=== PATIENT | female | born 1955 | race Caucasian/White ===

== ENCOUNTER 2024-12-04 08:56 | Emergency (ER) | payer OTHER, SELFPAY ==
--- OUTSIDE RECORDS SUMMARY | 2024-12-03 11:00 | XMS_ITS | Encounter Summary ---
Author Organization [facility] tem Address [id number] [address] [place] [address] Care Team Providers Care Automatic Mounter Name Role Phone Gareth Soria Primary Care Provider [phone]- [phone] Reason for Visit * Reason Comments Ear Fullness Encounter Details Date Type Department Care Team (Late st Contact Info) Description 12/03/2024 11:00 AM EDT Office Visit [facility] Internal Medicine - Family Medicine [address] [place] [phone] Krystal Casas, WORKERS COMPENSATION CONSULTANT-TIRE DEBEADER [address] [place] [phone] Excessive cerumen in ear canal, bilateral (Primary Dx) Social History Tobacco Use Types Packs/Day Years Used Date Smoking Tobacco: Former Cigarettes 1 1994 Smokeless Tobacco: Never Alcohol Use Standard Drinks/Week Comments Yes 0 (1 standard drink = 0.6 oz pur e alcohol) rarely C Utilities Answer Date Recorded In the past 12 months has [employer], gas, oil, or water company threatened to shut off services in your home? No 05/27/2023 Social Connection and Isolat ion Panel [NHANES] Answer Date Recorded In a typical week, how many times do you talk on the phone with family, friends, or neighbors? More than three times a week 06/14/2022 How often do you get togethe r with friends or relatives? Twice a week 06/14/2022 How often do you attend chur ch or buddhism services? Never 06/14/2022 Do you belong to any clubs o r organizations such as pentecostal groups, unions, fraternal or athletic groups, or school groups? Yes 06/14/2022 How often do you attend meet ings of the clubs or organizations you belong to? More than 4 times per year 06/14/2022 Are you , , di vorced, , never , or living with a partner? Never 06/14/2022 AUDIT-C Answer Date Recorded Q1: How often do you have a drink containing alc ohol? Monthly or less 04/03/2024 Q2: How many drinks containi ng alcohol do you have on a typical day when you are drinking? 3 or 4 04/03/2024 Q3: How often do you have si x or more drinks on one occasion? Never 04/03/2024 Overall Financial Resource Strain (CARDIA) Answe r Date Recorded How hard is it for you to pa y for the very basics like food, housing, medical care, and heating? Not hard at all 12/02/2024 PHQ-2 Answer Date Recorded Total Score 16 10/05/2024 [facility] [place] of Occupat ional Health - Occupational Stress Questionnaire Answer Date Recorded Do you feel stress - tense, restless, nervous, or anxious, or unable to sleep at night because your mind is troubled all the time - these days? Not at all 06/14/2022 Exercise Vital Sign Answer Date Recorde d On average, how many days pe r week do you engage in moderate to strenuous exercise (like a brisk walk)? 2 days 06/14/2022 On average, how many minutes do you engage in exercise at this level? 20 min 06/14/2022 PRAPARE - Transportation Answer Date Re corded In the past 12 months, has l ack of transportation kept you from medical appointments or from getting medications? No 11/15 In the past 12 months, has l ack of transportation kept you from meetings, work, or from getting things needed for daily living? No 12/02/2024 Housing Instability Answer Date Recorde d Are you worried or concerned that in the next two months you may not have stable housing that you own, rent or stay in as a part of a household? No 12/02/2024 Childcare Answer Date Recorded Do problems getting child ca re make it difficult for you to work or study? No 06/14/2022 Employment Answer Date Recorded Do you need help finding a [facility] career center and/or a training program? No 06/14/2022 Hunger Screening Answer Date Recorded Within the past 12 months we worried whether our food would run out before we got money to buy more. Never True 12/02/2024 Within the past 12 months th e food we bought just didn't last and we didn't have money to get more. Never True 12/02/2024 Purpose - Life Answer Date Recorded I have a purpose and direction in my life. Somew hat Agree 06/14/2022 Education Answer Date Recorded What is the highest level of school you have completed or the highest degree you have received? Associate degree: occupational, technical, or vocational program 06/14/2022 Comments No Sex and Gender Information Value Date Recorded Sex Assigned at Female 12/04/2020 1:59 PM EDT Legal Sex Female 11:28 AM EDT Gender Identity Female 12/04/2020 1:59 PM EDT Sexual Orientation Straight 12/04/2020 1: 59 PM EDT documented as of this encounter Last Filed Vital Signs Vital Sign Reading Time Taken Comments Blood Pressure 108/80 12/03/2024 11:03 AM EDT Pulse 85 12/03/2024 11:03 AM EDT Temperature 36.4 C (97.6 F) 12/03/2024 11:03 AM EDT Respiratory Rate 16 12/03/2024 11:03 AM EDT Oxygen Saturation 96% 12/03/2024 11:03 AM EDT Inhaled Oxygen Concentration - - Weight 53.3 kg (117 lb 6.4 oz) 12/03/2024 11:03 AM EDT Height 154.9 cm (5' 1 ) 12/03/2024 11:03 AM EDT Body Mass Index 22.18 12/03/2024 11:03 AM EDT documented in this encounter Patient Instructions * Attachments The following attachments cannot be sent through Care Everywhere. * Ear wax impaction (Macedonian) documented in this encounter Progress Notes * Krystal Casas APRN-TIRE DEBEADER - 12/03/2024 11:00 AM EDT Images from the original note were not included. [address] [place] [address] SUBJECTIVE: Patient ID: Ruth Yañez is a 69 y.o. female. Chief Complaint Patient presents with Ear Fullness Patient presents today for ear fullness. States she went to the baling machine operator who informed her she has cerumen build up in her ears. She has been using Debrox with limited results. Ear Fullness There is pain in both ears. This is a new problem. The current episode started more than 1 month ago. The problem occurs constantly. The problem has been waxing and waning. The patient is experiencing no pain. She has tried nothing for the symptoms. The following portions of the patient's history were reviewed and updated as appropriate: allergies, current medications, past family history, past medical history, past social history, past surgicalhistory and problem list. Past Surgical History: Procedure Laterality Date CATARACT EXTRACTION 2016 COLONOSCOPY N/A 08/03/2020 Performed by Geoffrey Reno DO at [facility] JOINT REPLACEMENT 2016 left knee LAPAROSCOPIC CHOLECYSTECTOMY REPLACEMENT TOTAL JOINT HIP [id number] Left 12/04/2022 Performed by Bennie Saucedo MD at [facility] TOTAL KNEE ARTHROPLASTY Left 2014 Past Medical History: Diagnosis Date Cataract removed Depression Diabetes mellitus type 2, controlled ([facility]) HL (hearing loss) aids Hyperlipidemia Hypertension Kidney stones Obesity 1999 Osteoarthritis Prolonged emergence from general anesthesia Seizure disorder ([facility]) last seizure , pt states she had abscence seizures Syncope In younger years Varicella 2 Visual impairment glasses Immunization History Administered Date(s) Administered COVID-19, mRNA, LNP-S, PF, 100mcg/0.5mL Dose 08/24/2020, 09/21/2020 COVID-19, mRNA, LNP-S, PF, 30mcg/0.3mL Dose 06/05/2021 Covid-19, Mrna, Lnp-s, Bivalent, Pf, 30mcg/0.3 ml 04/02/2022 Covid-19, Mrna, Lnp-s, Pf, 30 Mcg/0.3 Ml Dose, Jerman-sucrose 11/10/2021 Covid-19, Mrna, Lnp-s, Pf,jerman-sucrose,30 Mcg/0.3ml Seasonal 04/03/2024 Covid-19,mrna, Lnp-s, Pf, 50mcg/0.5ml 12+ Seasonal 05/15/2023 DTaP 08/25/2009 Influenza (IM) Preservative Free 04/19/2015 Influenza Whole 05/29/2010 Influenza, High-dose, Quadrivalent 04/02/2022 Influenza, Injectable, Mdck, Preservative Free, Quad 04/15/2018 Influenza, Injectable, quadrivalent (PF) 04/20/2016, 03/07/2019, 04/01/2020, 06/02/2021 Influenza, Trivalent, Adjuvanted 04/03/2024 Influenza, Unspecified 04/19/2014, 04/19/2016, 05/14/2017 Pneumococcal Conjugate 20-valent 02/07/2022 Pneumococcal Polysaccharide 08/24/2016 Tdap 2015, 05/26/2021 Zoster Vaccine Recombinant 02/07/2022, 04/09/2022 REVIEW OF SYSTEMS: Review of Systems Constitutional: Negative for chills and fever. HENT: Ear fullness Eyes: Negative for visual disturbance. Respiratory: Negative for chest tightness and shortness of breath. Cardiovascular: Negative for chest pain and palpitations. Gastrointestinal: Negative. Endocrine: Negative. Genitourinary: Negative for menstrual problem and pelvic pain. Musculoskeletal: Negative. Skin: Negative. Allergic/Immunologic: Negative. Neurological: Negative for syncope and facial asymmetry. Hematological: Does not bruise/bleed easily. Psychiatric/Behavioral: Negative. PHYSICAL EXAMINATION: Vitals: 12/03/24 1103 BP: 108/80 BP Site: Left Arm BP Postition: Sitting Pulse: 85 Resp: 16 Temp: 36.4 ??C (97.6 ??F) TempSrc: Tympanic SpO2: 96% Weight: 53.3 kg (117 lb 6.4 oz) Height: 154.9 cm (5' 1 ) Physical Exam Vitals and nursing note reviewed. Constitutional: General: She is not in acute distress. Appearance: She is well-developed. She is not diaphoretic. HENT: Head: Normocephalic and atraumatic. Right Ear: Tympanic membrane and external ear normal. There is impacted cerumen. Left Ear: Tympanic membrane and external ear normal. There is impacted cerumen. Nose: Nose normal. Mouth/Throat: Mouth: Mucous membranes are moist. Pharynx: No oropharyngeal exudate. Eyes: General: Right eye: No discharge. Left eye: No discharge. Conjunctiva/sclera: Conjunctivae normal. Pupils: Pupils are equal, round, and reactive to light. Neck: Thyroid: No thyromegaly. Vascular: No JVD. Cardiovascular: Rate and Rhythm: Normal rate and regular rhythm. Heart sounds: Normal heart sounds. No murmur heard. No friction rub. No gallop. Pulmonary: Effort: Pulmonary effort is normal. Breath sounds: Normal breath sounds. Abdominal: General: Bowel sounds are normal. There is no distension. Palpations: Abdomen is soft. There is no mass. Tenderness: There is no abdominal tenderness. Musculoskeletal: General: Normal range of motion. Cervical back: Normal range of motion and neck supple. Lymphadenopathy: Cervical: No cervical adenopathy. Skin: General: Skin is warm and dry. Capillary Refill: Capillary refill takes less than 2 seconds. Neurological: Mental Status: She is alert and oriented to person, place, and time. Deep Tendon Reflexes: Reflexes are normal and symmetric. Psychiatric: Mood and Affect: Mood normal. Behavior: Behavior normal. Thought Content: Thought content normal. Judgment: Judgment normal. ASSESSMENT/PLAN: Ruth was seen today for ear fullness. Diagnoses and all orders for this visit: Excessive cerumen in ear canal, bilateral Bilateral ears irrigated with warm tepid water. Manual removal of dark yellow cerumen from both ears. Patient tolerated procedure well. May continue to use Debrox PRN ALL QUESTIONS ANSWERED Total time spent was 25 minutes: Preparing to see the patient (e.g., review of tests) Obtaining and/or reviewing separately obtained history Performing a medically appropriate examination and/or evaluation Counseling and educating the patient/family/caregiver Follow-up: Next scheduled 01/07/25 LUPE Ocasio 12/03/24 1136 documented in this encounter Plan of Treatment Upcoming Encounters Date Type Department Care Team (Late st Contact Info) Description 01/07/2025 10:00 AM EDT Office Visit [facility] Internal Medicine - Family Medicine [address] [place] [address] Gareth Soria DO [address] [place] [address] documented as of this encounter Goals Goal Patient Goal Type Associated Problems Recent Progress Patient-Stated? Author IMPROVE MOBILITY General Yes Mary Siu, RN Note: Evaluation of progress towards goal: Maximize work with PT at discharge to strengthen L HIP documented as of this encounter Visit Diagnoses Diagnosis Excessive cerumen in ear canal, bilateral- Primary documented in this encounter Additional Health Concerns Assessment Noted Time PHQ-9 Depression Total Score: 16 025 2:46 PM EDT A Body Mass Index follow-up plan has been documented for the patient 06/14/2022 6:18 PM EST documented as of this encounter Care Teams Automatic Mounter Relationship Specialty Start Date End Date Gareth Soria DO [address] [facility] [place] [address] PCP - General 09/26/23 documented as of this encounter
[2024-12-04] VITALS (16 sets, daily range): BP systolic 139–169; BP diastolic 82–97; PULSE 73–86; TEMP 36.6–36.7; O2SAT 95; BMI 22.3
--- OUTSIDE RECORDS SUMMARY | 2024-12-04 09:06 | XMS_ITS | Encounter Summary ---
Author Organization [employer] tem Address [facility] [id number] [address] [place] [address] Care Team Providers Care Presales Engineer Name Role Phone Gareth Soria Primary Care Provider [phone] Reason for Visit * Reason Comments Med Refill Encounter Details Date Type Department Care Team (Late st Contact Info) Description 07/10/2022 Refill [facility] Internal Medicine - Family Medicine [address] [place] [phone] Krystal Casas, NURSE MONITORING-CHANNEL ROUGHER [address] [facility] [place] [address] Type 2 diabetes mellitus with hyperglycemia, without long-term current use of insulin ([facility]) Social History Tobacco Use Types Packs/Day Years Used Date Smoking Tobacco: Former Cigarettes 1 15 Smokeless Tobacco: Never Alcohol Use Standard Drinks/Week Comments Yes 0 (1 standard drink = 0.6 oz pur e alcohol) rarely Social Connection and Isolat ion Panel [NHANES] Answer Date Recorded In a typical week, how many times do you talk on the phone with family, friends, or neighbors? More than three times a week 06/14/2022 How often do you get togethe r with friends or relatives? Twice a week 06/14/2022 How often do you attend chur or latter day services? Never 06/14/2022 Do you belong to any clubs o r organizations such as druze groups, unions, fraternal or athletic groups, or [...] you have a drink containing alc ohol? 2-4 times a month 06/14/2022 Q2: How many drinks containi ng alcohol do you have on a typical day when you are drinking? 3 or 4 06/14/2022 Q3: How often do you have si x or more drinks on one occasion? Never 06/14/2022 Overall Financial Resource Strain (CARDIA) Answe r Date Recorded How hard is it for you to pa y for the very basics like food, housing, medical care, and heating? Not hard at all 06/14/2022 PHQ-2 Answer Date Recorded Total Score 0 06/14/2022 [facility] of Occupat ional Health - Occupational Stress [...] medical appointments or from getting medications? No 05/18 In the past 12 months, has l ack of transportation kept you from meetings, work, or from getting things needed for daily living? No 06/14/2022 Childcare Answer Date Recorded Do problems getting child ca re make it difficult for you to work or study? No 06/14/2022 Employment Answer Date Recorded Do you need help finding a [facility] and/or a training program? No 06/14/2022 Purpose - Life Answer Date Recorded I [...] Orientation Straight 12/04/2020 1: 59 PM EDT COVID-19 Exposure Response Date Recorded In the last month, have you been in contact with someone who was confirmed or suspected to have Coronavirus / COVID-19? No / Unsure 06/14/2022 3:21 PM EST documented as of this encounter Plan of Treatment Upcoming Encounters Date Type Department Care Team (Late st Contact Info) Description 01/07/2025 10:00 AM EDT Office Visit [facility] Internal Medicine - Family Medicine [address] [place] [address] Gareth Soria DO [address] [facility] [place] [address] documented as of this encounter Visit Diagnoses Diagnosis Type 2 diabetes mellitus with hyperglycemia, without long-term current use of insulin ([facility]) documented in this encounter Additional Health Concerns Assessment Noted Time PHQ-9 Depression Total Score: 0 06/14/20 22 3:43 PM EST A Body Mass Index follow-up plan has been documented for the patient 06/14/2022 6:18 PM EST documented as of this encounter Care Teams Presales Engineer Relationship Specialty Start Date End Date Gareth Soria DO [address] [facility] [place] [address] PCP - General 09/26/23 documented as of this encounter
--- OUTSIDE RECORDS SUMMARY | 2024-12-04 09:06 | XMS_ITS | Encounter Summary ---
Author Organization [facility] tem Address [id number] [address] [place] [address] Care Team Providers Care Drying Machine Tender Name Role Phone Gareth Soria DO Primary Care Provider [phone] Encounter Details Date Type Department Care Team (Late st Contact Info) Description 04/06/2024 Orders Only [facility] Internal Medicine - Family Medicine [address] [place] [address] Gareth Soria DO [address], [facility] [place] [address] Social History Tobacco Use Types Packs/Day Years Used Date Smoking Tobacco: Former Cigarettes 1 05 17 983 - 1994 Smokeless Tobacco: Never Alcohol Use Standard Drinks/Week Comments Yes 0 (1 standard drink = 0.6 oz pur e alcohol) rarely [facility] Utilities Answer Date Recorded In the past 12 months has [employer] electric, gas, oil, or water company threatened [...] week 06/14/2022 How often do you attend [facility] or muslim services? Never 06/14/2022 Do you belong to any clubs o r organizations such as scientologist groups, unions, fraternal or athletic groups, or [...] care, and heating? Not hard at all 05/24/2023 PHQ-2 Answer Date Recorded Total Score 0 09/05/2023 [facility] of Occupat ional Health - Occupational Stress [...] medical appointments or from getting medications? No 01/2023 In the past 12 months, has l ack of transportation kept you from meetings, work, or from getting things needed for daily living? No 05/24/2023 Housing Instability Answer Date Recorde d Are you worried or concerned that in the next two months you may not have stable housing that you own, rent or stay in as a part of a household? No 05/24/2023 Childcare Answer Date Recorded Do problems getting child ca re make it difficult for you to work or study? No 06/14/2022 Employment Answer Date Recorded Do you need help finding a [facility] and/or a training program? No 06/14/2022 Hunger Screening Answer Date Recorded Within the past 12 months we worried whether our food would run out before we got money to buy more. Never True 11/27/2023 Within the past 12 months th e food we bought just didn't last and we didn't have money to get more. Never True 11/27/2023 Purpose - Life Answer Date Recorded I [...] PM EDT documented as of this encounter Plan of Treatment Upcoming Encounters Date Type Department Care Team (Late st Contact Info) Description 01/07/2025 10:00 AM EDT Office Visit [facility] Internal Medicine - Family Medicine [address] [place] [address] Gareth Soria, [address] [facility] [place] [address] documented as of this encounter Goals Goal Patient Goal Type Associated Problems Recent Progress Patient-Stated? Author IMPROVE MOBILITY General Yes Mary Siu, RN Note: Evaluation of progress towards goal: Maximize work with PT at discharge to strengthen L HIP documented as of this encounter Visit Diagnoses Not on filedocumented in this encounter Additional Health Concerns Assessment Noted Time PHQ-9 Depression Total Score: 0 09/05/19 24 2:24 PM EDT A Body Mass Index follow-up plan has been documented for the patient 06/14/2022 6:18 PM EST documented as of this encounter Care Teams Drying Machine Tender Relationship Specialty Start Date End Date Gareth Soria DO [address] [place], [facility] [place] [address] PCP - General 09/26/23 documented as of this encounter
--- OUTSIDE RECORDS SUMMARY | 2024-12-04 09:06 | XMS_ITS | Encounter Summary ---
Author Organization [facility] tem Address [id number] [address] [place] [address] Care Team Providers Care Casing Splitter Name Role Phone Gareth Soria Primary Care Provider Encounter Details Date Type Department Care Team (Late st Contact Info) Description 02/14/2022 Orders Only [facility] [address] [place] [phone] Rose Abrams CMA Social History Tobacco Use Types Packs/Day Years Used Date Smoking Tobacco: Former Cigarettes 1 15 Smokeless Tobacco: Never Alcohol Use Standard Drinks/Week Comments Yes 0 (1 standard drink = 0.6 oz pur e alcohol) rarely Childcare Answer Date Recorded Childcare Unknown 11/24/2018 Employment Answer Date Recorded Employment Unknown 11/24/2018 Purpose - Life Answer Date Recorded Purpose and direction in life Unknown Comments No Sex and Gender Information Value [...] have Coronavirus / COVID-19? No / Unsure 01/24/2022 1:32 PM EDT documented as of this encounter Plan of Treatment Upcoming Encounters Date Type Department Care Team (Late st Contact Info) Description 01/07/2025 10:00 AM EDT Office Visit [facility] - Family Medicine [address] [address] Gareth Soria DO [address] [facility] [facility] [address] documented as of this encounter Visit Diagnoses Not on filedocumented in this encounter Care Teams Casing Splitter Relationship Specialty Start Date End Date Gareth Soria DO [address] [facility] [facility] [address] PCP - General 09/26/23 documented as of this encounter
--- OUTSIDE RECORDS SUMMARY | 2024-12-04 09:06 | XMS_ITS | Encounter Summary ---
Author Organization [facility] tem Address [id number] [address] [place] [address] Care Team Providers Care Biological Sciences Instructor Name Role Phone Gareth Soria Primary Care Provider [phone] Encounter Details Date Type Department Care Team (Late st Contact Info) Description 04/16/2024 Orders Only [facility] Internal Medicine - Family Medicine [address] [place] [address] Ref Prov, [place] [address] Social History Tobacco Use Types Packs/Day Years Used Date Smoking Tobacco: Former Cigarettes 1 1994 Smokeless Tobacco: Never Alcohol Use Standard Drinks/Week Comments Yes 0 (1 standard drink = 0.6 oz pur e alcohol) rarely C Utilities Answer Date Recorded In the past 12 months has [employer], gas, oil, or water [employer] threatened to shut off services in your [...] How often do you attend chur or christianity services? Never 06/14/2022 Do you belong to any clubs o r organizations such as jewish groups, unions, fraternal or athletic groups, or [...] Answer Date Recorded Total Score 0 09/05/2023 [facility] - Occupational [...] Recorded Do you need help finding a l ocal career center and/or a training program? No [...] Internal Medicine - Family Medicine [address] [place] [address] Gaerth Soria, DO [address], [place] [address] documented as of this encounter Goals Goal Patient Goal Type Associated Problems Recent Progress Patient-Stated? Author IMPROVE MOBILITY General Yes Mary Siu, RN Note: Evaluation of progress towards goal: Maximize work with PT at discharge to strengthen L HIP documented as of this encounter Procedures Procedure Name Priority Date/Time Associated Diagnosis Comments DIABETES EYE EXAM Routine 12/18/2023 2:05 PM EDT documented in this encounter Results * HM DIABETES EYE EXAM (12/18/2023 2:05 PM EDT) us Not In System Ref Prov HEALTH MAINTENANCE Final Result MANUALLY TRANSCRIBED RESULTS documented in this encounter Visit Diagnoses Not on filedocumented in this encounter Additional Health Concerns Assessment Noted Time PHQ-9 Depression Total Score: 0 09/05/19 24 2:24 PM EDT A Body Mass Index follow-up plan has been documented for the patient 06/14/2022 6:18 PM EST documented as of this encounter Care Teams Biological Sciences Instructor Relationship Specialty Start Date End Date Gareth Soria DO [address] [facility], [place] [address] PCP - General 09/26/23 documented as of this encounter
--- OUTSIDE RECORDS SUMMARY | 2024-12-04 09:06 | XMS_ITS | Clinical Summary ---
Author Organization Mineralist tem Address [id number] [address] [place] [address] Care Team Providers Care Ceramic Painter Name Role Phone Gareth Soria Primary Care Provider Allergies No known active allergies Medications calcium carbonate (OS-CANDIDA) 500 mg calcium (1,250 mg) tablet Active aspirin 81 mg Take 1 tablet (81 mg total) by mouth in the morning. 100 tablet 3 Active latanoprost (XALATAN) 0.005 % ophthalmic solution 4 Active losartan (COZAAR) 50 mg tabletIndications :Essential (primary) hypertension TAKE 1 TABLET BY MOUTH DAILY 90 tablet 1 5 Active sertraline (ZOLOFT) 100 mg tabletIndications :Dysthymic disorder TAKE 1 TABLET BY MOUTH DAILY 30 tablet 5 5 Active atorvastatin (LIPITOR) 40 mg tabletIndications :Hyperlipidemia, unspecified TAKE 1 TABLET BY MOUTH DAILY 30 tablet 5 5 Active potassium chloride (KLOR-CON M 10) 10 MEQ CR tablet TAKE 1 TABLET BY MOUTH EVERY MORNING 30 tablet 5 5 Active mirabegron (MYRBETRIQ) 25 mg tablet extended release 24 hr Take 1 tablet (25 mg total) by mouth in the morning. 90 tablet 1 5 Active dulaglutide (TRULICITY) 3 mg/0.5 mL pen injectorIndicatio ns:Controlled type 2 diabetes mellitus without complication, without long-term current use of insulin ([facility]) Inject 3 mg under the skin once a week. 2 mL 3 5 Active magnesium oxide (MAGOX) 400 mg tablet Take 1 tablet (400 mg total) by mouth in the morning. 100 tablet 3 5 Active metFORMIN XR (GLUCOPHAGE XR) 750 mg 24 hr tabletIndications :Type 2 diabetes mellitus with hyperglycemia, without long-term current use of insulin ([facility]) TAKE 1 TABLET BY MOUTH DAILY WITH BREAKFAST 30 tablet 5 5 Active alendronate (FOSAMAX) 70 mg tabletIndications :Age-related osteoporosis without current pathological fracture TAKE 1 TABLET BY MOUTH ONCE WEEKLY ON AN EMPTY STOMACH BEFORE BREAKFAST. REMAIN UPRIGHT FOR 30 MINUTES AND TAKE WITH 8 OUNCES OF WATER 12 tablet 3 5 Active carBAMazepine (TEGretol) 200 mg tabletIndications :Epilepsy, unspecified, not intractable, without status epilepticus ([facility]) TAKE 1 TABLET BY MOUTH 4 TIMES A DAY 120 tablet 5 5 Active Active Problems Problem Noted Date Diagnosed Date Urge incontinence 10/05/2024 Moderately severe recurrent major depression Constipation 04/03/2024 History of total left hip arthroplasty Hypomagnesemia 12/05/2022 Thrombocytopenia 12/05/2022 Primary osteoarthritis of left hip 10/25/2022 Overview (10/25/2022): Added automatically from request for surgery [id number] Elevated liver enzymes 07/17/2022 Heart murmur 07/17/2022 Adenomatous polyp of descending colon 08/03/2020 Diverticulosis large intesti ne w/o perforation or abscess w/o bleeding 08/03/2020 Diabetes mellitus type 2, controlled Hyperlipidemia, unspecified Hypertension Seizure disorder Resolved Problems Problem Noted Date Diagnosed Date Resolved Date Overweight 04/03/2024 10/05/2024 Class 1 obesity due to exces s calories with serious comorbidity and body mass index (BMI) of 30.0 to 30.9 in adult 07/17/2022 12/04/2022 Personal history of colonic polyps 07/13/2020 12/04/2022 Overview (03/17/2024): Replacing Diagnosis that were inactivated after 03/17 regulatory import Encounters Date Type Department Care Team Description 12/03/2024 11:00 AM EDT Office Visit [facility] [address] [place] [address] Krystal Casas, NETWORKS COMPUTER CONSULTANT-HAY CHOPPER Excessive cerumen in ear canal, bilateral (Primary Dx) 12/02/2024 Travel 11/17/2024 Orders Only [facility], A Department of [address] [address] External, Scanning Provider 11/13/2024 1:30 PM EDT Office Ultrasound [facility], Department of [address] [address] Steatohepatitis (Primary Dx) 11/10/2024 Travel 11/02/2024 Refill [facility] [address] [facility] [place] [address] Gareth Soria, DO Epilepsy, unspecified, not intractable, without status epilepticus ([facility]) 10/28/2024 [facility] [address] [place] [address] Gareth Soria, DO Steatohepatitis (Primary Dx); Elevated liver enzymes 10/26/2024 Orders Only [facility] [address] [place] [address] Gareth Soria, DO Elevated liver enzymes (Primary Dx); Steatohepatitis 10/26/2024 Telephone [facility] [address] [place] [address] Andree Heart CMA 10/26/2024 Telephone [facility] [address] [place] [address] Tesha Boyce, CASING BUILDER 10/22/2024 8:38 AM EDT - 10/22/2024 11:59 PM EDT Hospital Encounter [facility] - Ultrasound [address] [place] [place] [address] Gareth Soria, DO Elevated liver enzymes Discharge Disposition: Home 10/21/2024 Travel 10/15/2024 Refill [facility] [address] [place] [address] Gareth Soria, DO Type 2 diabetes mellitus with hyperglycemia, without long-term current use of insulin ([facility]); Age-related osteoporosis without current pathological fracture 10/12/2024 Refill [facility] [address] [place] [address] Tesha Boyce CASING BUILDER 10/08/2024 [facility] [address] [place] [address] Ref Prov, Not In System 10/07/2024 [facility] [address] [place] [address] Gareth Soria, Controlled type 2 diabetes mellitus without complication, without long-term current use of insulin ([facility]) (Primary Dx); Elevated liver enzymes 10/05/2024 9:48 PM EDT - 10/05/2024 11:59 PM EDT Hospital Encounter [facility] [address] [facility] [address] [place] [address] Controlled type 2 diabetes mellitus without complication, without long-term current use of insulin ([facility]); Seizure disorder ([facility]); Mixed hyperlipidemia; Primary hypertension Discharge Disposition: Home 10/05/2024 3:00 PM EDT [facility] [address] [place] [address] Gareth Soria, Controlled type 2 diabetes mellitus without complication, without long-term current use of insulin ([facility]) (Primary Dx); Primary hypertension; Mixed hyperlipidemia; Urge incontinence; Seizure disorder ([facility]); Moderately severe recurrent major depression ([facility]) 10/05/2024 Travel 10/01/2024 Refill [facility] [address] [place] [address] Gareth Soria, Hyperlipidemia, unspecified from Last 3 Months Immunizations Immunization Administration Dates Next Due Covid-19, Mrna, Lnp-s, Pf,ramona-sucrose,30 Mcg/0.3ml Seasonal 04/03/2024 DTaP 08/25/2009 Influenza (IM) Preservative Free 04/19/2015 Influenza Whole 05/29/2010 Influenza, High-dose, Quadrivalent 04/02/2022 Influenza, Injectable, Mdck, Preservative Free, Quad 04/15/2018 Influenza, Injectable, quadr ivalent (PF) 06/02/2021,04/01/2020,03/07/2019,04/20 Influenza, Trivalent, Adjuvanted 04/03/2024 Influenza, Unspecified 05/14/2017,04/19/2016,08/2013 Pneumococcal Conjugate 20-valent 02/07/2022 Pneumococcal Polysaccharide 08/24/2016 Tdap 05/26/2021,2015 Zoster Vaccine Recombinant 04/09/2022,02/07/2022 Family History Medical History Relation Name Comments Breast cancer Cousin 1 Keke Age 48 Breast cancer Cousin 2 Terri Age 53 Coronary artery disease Father Jose Heart attack Father Jose Heart disease Father Jose of heart attack at age 40 Stroke Maternal Grandfather Breast cancer Maternal Grandmother Samantha Age 49 Depression Maternal Grandmother Samantha Lymphoma Maternal Grandmother Samantha Colon cancer Maternal Uncle 1 Colon cancer Maternal Uncle 2 Rolan Breast cancer Mother Mary Age 49 Depression Mother Mary Tawana's thyroiditis Mother Mary Heart disease Mother Mary Stroke Mother Mary Breast cancer Other MATERNAL GREAT GRANDMOTH Stroke Paternal Grandmother Anesthesia problems Neg Hx Bryson Breast Cancer Neg Hx Bleeding Disorder Neg Hx Clotting disorder Neg Hx Diabetes Neg Hx Ovarian cancer Neg Hx Relation Name Status Comments Brother Alive Cousin 1 Keke Cousin 2 Terri Father Jose Maternal Grandfather Maternal Grandmother Samantha Maternal Uncle 1 Maternal Uncle 2 Rolan Mother Mary Other MATERNAL GREAT GRANDMOTH Paternal Grandfather Paternal Grandmother Social History Tobacco Use Types Packs/Day Years Used Date Smoking Tobacco: Former Cigarettes 1 12 1994 Smokeless Tobacco: Never Tobacco Cessation:Counseling Given: Not Answered Alcohol Use Standard Drinks/Week Comments Yes 0 (1 standard drink = 0.6 oz pur e alcohol) rarely [facility] Utilities Answer Date Recorded In the past 12 months has th e [employer], gas, oil, or water [employer] threatened to shut off services in your [...] week 06/14/2022 How often do you attend [facility] or pentecostal services? Never 06/14/2022 Do you belong to any clubs o r organizations such as restorationist groups, unions, fraternal or athletic groups, or [...] Answer Date Recorded Total Score 16 10/05/2024 [facility] Occupat ional Health - Occupational Stress [...] Recorded Do you need help finding a [facility] career [facility] and/or a training program? No [...] Orientation Straight 12/04/2020 1: 59 PM EDT Last Filed Vital Signs Vital Sign Reading [...] Mass Index 22.18 12/03/2024 11:03 AM EDT Plan of Treatment Upcoming Encounters Date Type Department Care Team (Late st Contact Info) Description 01/07/2025 10:00 AM EDT Office Visit [facility] [address] [place] [address] Gareth Soria, DO [address] [facility] [address] Health Maintenance Due Date Last Done Comments COVID-19 Vaccine ( season) 2024 04/03/2024, 05/15/2023, 04/02/2022, Additional history exists Influenza Vaccine 02/15/2025 04/03/2024, , 04/02/2022, Additional history exists Mammogram 05/04/2025 05/04/2024, 04/17, 12/20/2021, Additional history exists Diabetic Ophthalmology Exam 06/19/2025 01/0 08/2024, 12/18/2023, 12/18/2023, Additional history exists Colonoscopy 08/03/2025 Postponed from 2002 (Not Indicated) Depression Screening 10/05/2025 10/05/2024 Diabetic Foot Exam 10/05/2025 10/05/2024, 1 07/28/2022, 01/30/2022 Fall Risk Screening 10/05/2025 10/05/2024 Adult BMI Screening 12/03/2025 12/03/2024 Tobacco Screening 12/03/2025 12/03/2024 DTaP,Tdap and Td Vaccines (4 - Td or Tdap) 05/26/2031 05/26/2021, 2015, 08/25/2009 Zoster (Shingles) Vaccine Completed 04/09/2022, Goals Goal Patient Goal Type Associated Problems Recent Progress Patient-Stated? Author IMPROVE MOBILITY General Yes Mary Siu, RN Note: Evaluation of progress towards goal: Maximize work with PT at discharge to strengthen L HIP Medical Devices Implanted Type Area Industrial Yard Brake Coupler Device Identifier Shelf Expiration Date Model / Serial / Lot Bearing Hip 38mm 28mm C Vivacit-E Lum Strl Lf - [id number] Implanted:Qt y: 1 on 12/04/2022 by Bennie Saucedo MD at [facility] Bearing Left: Hip [employer] 05/28/2027 [id number] / / [id number] Shell Actb 48mm Hip Lmt 3 Hl Fin Por G7 C Hmsphr Os - [id number] Implanted:Qt y: 1 on 12/04/2022 by Bennie Saucedo MD at [facility] Orthopedic Implant Left: Hip [employer] [id number] 04/04/2032 [id number] / / [id number] Liner Actb 38mm C Cocr 2 Mbl G7 Hip - [id number] Implanted:Qt y: 1 on 12/04/2022 by Bennie Saucedo MD at [facility] Orthopedic Implant Left: Hip [employer] [id number] 03/29/2032 [id number] / / [id number] Stem Fem 132mm 6mm 133d Hi Os Tpr Tprlk Pps Ti Hip Prft Full - [id number] Implanted:Qt y: 1 on 12/04/2022 by Bennie Saucedo MD at [facility] Orthopedic Implant Left: Hip [employer] [id number] 07/17/2031 [id number] / / [id number] Sleeve Hip -6mm Os Tpr G7 Blx D Opt Ti Centering Ty 1 Rpl 650-1891 - [id number] Implanted:Qt y: 1 on 12/04/2022 by Bennie Saucedo MD at [facility] Orthopedic Implant Left: Hip [employer] 03/06/2032 [id number] / / [id number] Head Fem 28mm Blx D Opt Hip Rpl 650-7779 - [id number] Implanted:Qt y: 1 on 12/04/2022 by Bennie Saucedo MD at [facility] Other Implant Left: Hip [employer] 02/16/2032 [id number] / / [id number] Screw Bn 30mm 6.5mm St Actb Rodrigo Trlg Strl Rpl [id number] - [id number] Implanted:Qt y: 1 on 12/04/2022 by Bennie Saucedo MD at [facility] Screw Left: Hip [employer] [id number] 09/13/2032 [id number] / / [id number] Procedures Procedure Name Priority Date/Time Associated Diagnosis Comments FIBROSCAN Routine 11/13/2024 2:55 PM EDT US ABDOMEN LMTD Routine 10/22/2024 9:07 AM EDT Elevated liver enzymes POCT URINALYSIS DIPSTICK ONLY Routine 10/05/2024 3:58 PM EDT Urge incontinence COMPREHENSIVE METABOLIC PANEL Routine 10/05/2024 3:44 PM EDT Primary hypertension LIPID PROFILE Routine 10/05/2024 3:44 PM EDT Mixed hyperlipidemia CARBAMAZEPINE WITH DOSE INFO Routine 10/05/2024 3:44 PM EDT Seizure disorder ([facility]) HEMOGLOBIN A1C Routine 10/05/2024 3:44 PM EDT Controlled type 2 diabetes mellitus without complication, without long-term current use of insulin ([facility]) HM DIABETES EYE EXAM Routine 06/19/2024 2:06 PM EST MAMM SCREENING BILATERAL W CAD Routine 05/04/2024 2:00 PM EST Encounter for screening mammogram for malignant neoplasm of breast from Last 3 Months or Most Recently Relevant to Health Maintenance Results * Ultrasound abdomen limited (10/22/2024 9:07 AM EDT) Anatomical Region Laterality Modality Body, Abdomen Ultrasound 10/25/2024 2:14 PM EDT Narrative 10/25/2024 2:16 PM EDT ABDOMEN LIMITED ULTRASOUND HISTORY: Elevated liver enzymes COMPARISON: 08/10/2021 FINDINGS: Pancreas: Visualized portions of the pancreatic head and body are unremarkable. Coarsened hepatic echotexture with nodular surface contour compatible with cirrhosis. Within these limits, no focal hepatic lesion. No intrahepatic biliary dilatation. Main portal vein is patent with appropriate direction of flow. Recanalized paraumbilical vein. Gallbladder surgically absent. Common duct measures 2 mm, within normal limits for patient's provided age. No visualized ascites. IMPRESSION: 1. Morphologic changes of cirrhosis, no appreciable hepatic mass. No ascites. Social: Reports hypertension with recanalized paraumbilical vein. Finalized by Basilio Dumont MD on 10/25/2024 2:16 PM Procedure Note Basilio Dumont MD - 10/25/2024 ABDOMEN LIMITED ULTRASOUND HISTORY: Elevated liver enzymes COMPARISON: 08/10/2021 FINDINGS: Pancreas: Visualized portions of the pancreatic head and body areunremarkable. Coarsened hepatic echotexture with nodular surface contour compatible withcirrhosis. Within these limits, no focal hepatic lesion. No intrahepatic biliary dilatation. Main portal vein is patent withappropriate direction of flow. Recanalized paraumbilical vein. Gallbladder surgically absent. Common duct measures 2 mm, within normal limits for patient's providedage. No visualized ascites. IMPRESSION: 1. Morphologic changes of cirrhosis, no appreciable hepatic mass. Noascites. Social: Reports hypertension with recanalized paraumbilicalvein. Finalized by Basilio Dumont MD on 10/25/2024 2:16 PM us Gareth Soria DO IMG US ORDERABLES Final Resu lt * POCT urinalysis dipstick only (10/05/2024 3:58 PM EDT) External Poct Urine Color yellow MANUALLY TRANSCRIBED RESULTS External Poct Urine Appearance cloudy MANUALLY TRANSCRIBED RESULTS External Poct Urine Glucose Large MANUALLY TRANSCRIBED RESULTS Comment:500mg External Poct Urine Bilirubin Trace MANUALLY TRANSCRIBED RESULTS External Poct Urine Ketones Trace MANUALLY TRANSCRIBED RESULTS External Poct Urine Specific Newell 1.025 MANUALLY TRANSCRIBED RESULTS External Poct Urine Blood Trace MANUALLY TRANSCRIBED RESULTS External Poct Urine Ph 6.0 MANUALLY TRANSCRIBED RESULTS External Poct Urine Protein 3+ MANUALLY TRANSCRIBED RESULTS Comment:30 External Poct Urine Urobilinogen 1.0 MANUALLY TRANSCRIBED RESULTS External Poct Urine Nitrite Negative MANUALLY TRANSCRIBED RESULTS Comment:1.0 External Poct Urine Leukocyte Esterase Negative MANUALLY TRANSCRIBED RESULTS Clean Catch Midstream Urine 10/05/2024 3:58 PM EDT Gareth Soria DO POINT OF CARE TEST ORDERABLE S Final Result Performing Organization Address City/[facility] Co de Phone Number MANUALLY TRANSCRIBED RESULTS * Carbamazepine with dose info (10/05/2024 3:44 PM EDT) Carbamazepine Lvl 6.6 4.0 - 12.0 ug/mL 10/05/2024 10:10 PM EDT [facility] Dose info UNKNOWN 10/05/2024 9:50 PM EDT [employer] PLASMA 10/05/2024 3:44 PM EDT 10/05/2024 9:49 PM EDT us Gareth Soria DO LAB BLOOD ORDERABLES Final R esult [employer] [address] [place] [address] * (ABNORMAL) Hemoglobin A1c (10/05/2024 3:44 PM EDT) Pathologist [facility] Hemoglobin A1C 12.2(H) 4.4 - 5.6 % 10/06/2024 7:38 AM EDT [facility] Comment: NOTE ADA Guidelines Result HgbA1c Normal : less than 5.7 % Prediabetes : 5.7 % to 6.4 % Diabetes : > 6.4 % Use with caution in patients with abnormal hemoglobin variants as the half-life of red blood cells and in vivo glycation rates are affected. Average glucose 303 mg/dL 7:38 AM EDT [facility] PLASMA 10/05/2024 3:44 PM EDT 10/05/2024 9:49 PM EDT Gareth Soria DO LAB BLOOD ORDERABLES Final R esult JANETH [facility] [address], [address] [place] [address] * (ABNORMAL) Lipid profile (10/05/2024 3:44 PM EDT) [facility] Cholesterol 154 150 - 200 mg/dL 10/05/2024 10:10 PM EDT [facility] Triglycerides 156(H) 27 - 150 mg/dL 10/05/2024 10:10 PM EDT [facility] HDL Cholesterol 74 >39 mg/dL 10:10 PM EDT [facility] Comment: HDL <40 mg/dL - High Risk HDL > or = 40mg/dL- Desirable HDL >60 mg/dL - Negative Risk VLDL 31(H) 0 - 30 mg/dL 10/05/2024 10:10 PM EDT [facility] LDL (calc) 49 <130 mg/dL 10/05/2024 10:10 PM EDT [facility] Comment: LDL <100 mg/dL - Desirable LDL >160 mg/dL - High Risk Cholesterol:HDL Ratio 2.1 1.0 - 5.0 10/05/2024 10:10 PM EDT [facility] PLASMA 10/05/2024 3:44 PM EDT 10/05/2024 9:49 PM EDT us Gareth Soria DO LAB BLOOD ORDERABLES Final R esult [facility] [address], [address] [place] [address] * (ABNORMAL) Comprehensive metabolic panel (10/05/2024 3:44 PM EDT) Sodium 138 134 - 146 mmol/L 10/05/2024 10:10 PM EDT [facility] Potassium, Bld 4.2 3.5 - 5.0 mmol/L 10/05/2024 10:10 PM EDT [facility] Chloride 95(L) 98 - 109 mmol/L 10/05/2024 10:10 PM EDT [facility] CO2 34(H) 22 - 32 mmol/L 10/05/2024 10:10 PM EDT [facility] Anion gap 9 5 - 15 mmol/L 10/05/2024 10:10 PM EDT [facility] BUN 13 5 - 27 mg/dL 10/05/2024 10:10 PM EDT [facility] Creatinine 0.69 0.40 - 1.00 mg/dL 10/05/2024 10:10 PM EDT [facility] Comment:METHOD TRACEABLE TO IDMS STANDARD Glucose 347(H) 65 - 99 mg/dL 10/05/2024 10:10 PM EDT [facility] Calcium 9.9 8.5 - 10.5 mg/dL 10/05/2024 10:10 PM EDT [facility] Total Protein 6.7 6.0 - 8.0 g/dL 10/05/2024 10:10 PM EDT [facility] Albumin 4.1 3.2 - 5.3 g/dL 10/05/2024 10:10 PM EDT [facility] Alkaline Phosphatase 75 39 - 130 U/L 10/05/2024 10:10 PM EDT [facility] AST 55(H) 0 - 41 U/L 10/05/2024 10:10 PM EDT [facility] ALT 55(H) 0 - 31 U/L 10/05/2024 10:10 PM EDT [facility] Total bilirubin 0.8 0.3 - 1.2 mg/dL 10/05/2024 10:10 PM EDT [facility] eGFR (CKD-EPI)non-rac e dependent >90 >59 ml/min/1.7 3sq.m 10/05/2024 10:10 PM EDT [facility] Comment: Reported eGFR is based on the CKD-EPI 2020 equation that does not use a race coefficient. PLASMA 10/05/2024 3:44 PM EDT 10/05/2024 9:49 PM EDT us Gareth Soria DO LAB BLOOD ORDERABLES Final R esult [employer] [address] [place] [address] * DIABETES EYE EXAM (06/19/2024 2:06 PM EST) us Not In System Ref Prov HEALTH MAINTENANCE Final Result Performing Organization Address City/[facility]/ZIP Co de Phone Number MANUALLY TRANSCRIBED RESULTS * Mammography screening bilateral with CAD (05/04/2024 2:00 PM EST) Anatomical Region Laterality Modality Breast Bilateral Mammography 05/05/2024 1:14 PM EST Narrative 05/05/2024 1:18 PM EST ALE DASILVA 1955 [id number] EXAM: MAMM SCREENING BILATERAL W CAD, 05/04/2024 1:27 PM CLINICAL INDICATIONS: Screening, Encounter for screening mammogram for malignant neoplasm of breast COMPARISON: Previous studies dating back to 2020 TECHNIQUE: Bilateral digital tomosynthesis MLO and CC views of the breasts were obtained, with creation of synthetic 2D views. Computer aided detection was utilized. FINDINGS: There are scattered areas of fibroglandular density. There are no suspicious masses, calcifications, or areas of architectural distortion. IMPRESSION: No mammographic evidence of malignancy. BI-RADS: BI-RADS 1 - Negative RECOMMENDATION: Routine screening mammogram in 1 year. RISK ASSESSMENT: TC Lifetime risk: 16.49%. The patient's reported personal and family medical history was used calculate their Tyrer-Cuzick lifetime risk of malignancy. Scores less than 20% are not considered high risk per ACR guidelines and patient should continue with the above recommendation. Finalized by Logan Jones DO on 05/05/2024 1:18 PM 1 b MAMM 1 YR FDA Accredited Performing Facility: [facility] - Mammography/DEXA Imaging [address] [id number] Procedure Note Logan Jones DO - 05/05/2024 ALE ACEVEDOARD 1955 [id number] EXAM: MAMM SCREENING BILATERAL W CAD, 05/04/2024 1:27 PM CLINICAL INDICATIONS: Screening, Encounter for screening mammogram formalignant neoplasm of breast COMPARISON: Previous studies dating back to 2020 TECHNIQUE: Bilateral digital tomosynthesis MLO and CC views of the breastswere obtained, with creation of synthetic 2D views. Computer aideddetection was utilized. FINDINGS: There are scattered areas of fibroglandular density. There are no suspicious masses, calcifications, or areas of architecturaldistortion. IMPRESSION: No mammographic evidence of malignancy. BI-RADS: BI-RADS 1 - Negative RECOMMENDATION: Routine screening mammogram in 1 year. RISK ASSESSMENT: TC Lifetime risk: 16.49%. The patient's reported personal and family medical history was [facility]cal[facility] of malignancy. Scores less than20% are not considered high risk per ACR guidelines and patient shouldcontinue with the above recommendation. Finalized by Logan Jones DO on 05/05/2024 1:18 PM 1 b MAMM 1 YR FDA Accredited Performing Facility: [facility] - Mammography/DEXA Imaging [address] [facility] [id number] Gareth Pepe Chrisgonzales IMG MAMMOGRAPHY ORDERABLES F inal Result from Last 3 Months or Most Recently Relevant to [place] [address] [employer] INSURANCE Advance Directives Documents on File Type Date Recorded Patient Information Technology Specialist Expl anation Living Will 07/13/2024 10:44 AM Living Wi ll/POA 06/15/24 * Full Code (Latest Code Status on File) Date Activated Date Inactivated Comments 12/04/2022 5:40 PM 12/05/2022 2:52 PM Care Teams Ceramic Painter Relationship Specialty Start Date End Date Gareth Soria DO [address] [facility], [place] [address] PCP - General 09/26/23
--- OUTSIDE RECORDS SUMMARY | 2024-12-04 09:06 | XMS_ITS | Encounter Summary ---
Author Organization [employer] Address [facility] [place]-[id number] [address] [place] [address] Care Team Providers Care Broomcorn Press Feeder Name Role Phone Gareth Soria Primary Care Provider [phone] [phone] Reason for Visit * Reason Comments Med Refill Encounter Details Date Type Department Care Team (Late st Contact Info) Description 09/09/2022 Refill [facility] - Family Medicine [address] [place] [phone] Krystal Casas, DIRECTOR ASSET-WAREHOUSE GUARD [address] [place] [address] Type 2 diabetes mellitus with hyperglycemia, without long-term current use of insulin ([facility]) Social History Tobacco Use Types Packs/Day Years [...] How often do you attend chur or tenriism services? Never 06/14/2022 Do you belong to [...] PHQ-2 Answer Date Recorded Total Score 0 07/17/2022 [facility] of Occupat ional Health - [...] Recorded Do you need help finding a [facility] and/or a training program? [...] have Coronavirus / COVID-19? No / Unsure 09/03/2022 9:50 AM EDT documented as of this encounter Plan of Treatment Upcoming Encounters Date Type Department Care Team (Late st Contact Info) Description 01/07/2025 10:00 AM EDT Office Visit [facility] - Family Medicine [address] [place] [address] Gareth Soria DO [address] [facility] [place] [address] documented as of this encounter Visit Diagnoses Diagnosis Type 2 diabetes mellitus with hyperglycemia, without long-term current use of insulin ([facility]) documented in this encounter Additional Health Concerns Assessment Noted Time PHQ-9 Depression Total Score: 0 07/17/19 23 2:52 PM EST A Body Mass Index follow-up plan has been documented for the patient 06/14/2022 6:18 PM EST documented as of this encounter Care Teams Broomcorn Press Feeder Relationship Specialty Start Date End Date Gareth Soria DO [address] [facility] [place] [address] PCP - General 09/26/23 documented as of this encounter
[2024-12-04 09:07] LABS: Glucometer 348 mg/dL (74-106)
--- OUTSIDE RECORDS SUMMARY | 2024-12-04 09:07 | XMS_ITS | Encounter Summary ---
Author Organization [facility] tem Address [facility] [place]-[id number] [address] [place] [address] Care Team Providers Care Phlebotomy Tech Name Role Phone Gareth Soria Primary Care Provider [phone] Encounter Details Date Type Department Care Team (Late st Contact Info) Description 05/28/2023 Orders Only [facility] - Family Medicine [address] [place] [address] External, Scanning Provider Social History Tobacco Use Types Packs/Day Years Used Date Smoking Tobacco: Former Cigarettes 1 - 1994 Smokeless Tobacco: Never Alcohol Use Standard Drinks/Week Comments Yes 0 (1 standard drink = 0.6 oz pur e alcohol) rarely [facility] Utilities Answer Date Recorded In the past 12 months has [employer], gas, oil, or water company threatened to [...] often do you attend chur ch or restoration services? Never 06/14/2022 Do you belong to any clubs o r organizations such as mandaen groups, unions, fraternal or athletic groups, or school groups? Yes 06/14/2022 How often do you attend meet ings of the clubs or organizations you belong to? More than 4 times per year 06/14/2022 Are you , , di vorced, , never , or living with a partner? Never 06/14/2022 AUDIT-C Answer Date Recorded Frequency of Alcohol Consumption Not on file 05/27/2023 Q2: How many drinks containi ng alcohol do you have on a typical day when you are drinking? 1 or 2 05/27/2023 Frequency of Binge Drinking Not on file 05/17 Overall Financial Resource Strain (CARDIA) Answe r Date Recorded How hard is it for you to pa y for the very basics like food, housing, medical care, and heating? Not hard at all 05/24/2023 PHQ-2 Answer Date Recorded Total Score 0 11/26/2022 [facility] of Occupat ional Health - Occupational Stress [...] Recorded Do you need help finding a [facility] career center and/or a training program? No 06/14/2022 Hunger Screening Answer Date Recorded Within the past 12 months we worried whether our food would run out before we got money to buy more. Never True 05/27/2023 Within the past 12 months th e food we bought just didn't last and we didn't have money to get more. Never True 05/27/2023 Purpose - Life Answer Date Recorded I [...] - Family Medicine [address] [place] [address] Gareth Soria DO [address] [place] [address] documented as of this encounter Goals Goal Patient Goal Type Associated Problems Recent Progress Patient-Stated? Author IMPROVE MOBILITY General Yes Mary Siu, RN Note: Evaluation of progress towards goal: Maximize work with PT at discharge to strengthen L HIP documented as of this encounter Visit Diagnoses Not on filedocumented in this encounter Additional Health Concerns Assessment Noted Time PHQ-9 Depression Total Score: 0 11/27/19 23 4:07 PM EDT A Body Mass Index follow-up plan has been documented for the patient 06/14/2022 6:18 PM EST documented as of this encounter Care Teams Phlebotomy Tech Relationship Specialty Start Date End Date Gareth Soria DO [address] [place] [address] PCP - General 09/26/23 documented as of this encounter
--- OUTSIDE RECORDS SUMMARY | 2024-12-04 09:07 | XMS_ITS | Encounter Summary ---
Author Organization [employer] tem Address [facility] [place][id number] [address] [place] [address] Care Team Providers Care Gas Turbine Powerplant Mechanic Helper Name Role Phone FreddieGareth roca Primary Care Provider [phone] Encounter Details Date Type Department Care Team (Late st Contact Info) Description 12/05/2022 Telephone [facility] [address] [place] [phone] Jacki Neal CMA Social History Tobacco Use Types Packs/Day Years Used Date Smoking Tobacco: Former Cigarettes 1994 Smokeless Tobacco: Never Alcohol Use Standard [...] often do you attend chur ch or anglican services? Never 06/14/2022 Do you belong to any clubs o r organizations such as oriental orthodox groups, unions, fraternal or athletic groups, or [...] Answer Date Recorded Total Score 0 11/26/2022 [facility] of Occupat ional Health - Occupational [...] medical appointments or from getting medications? No 11/16 In the past 12 months, has l ack of transportation kept you from meetings, work, or from getting things needed for daily living? No 12/04/2022 Childcare Answer Date Recorded Do problems getting [...] PM EDT documented as of this encounter Functional Status documented as of this encounter Mental Status * Question Answer Entry Date Author Overall Cognitive Status WFL 12/05/2022 10:08 AM EDT Rob Walsh, PT documented in this encounter Miscellaneous Notes * Telephone Encounter - Jacki Neal CMA - 12/05/2022 11:56 AM EDT MARINE STEAM FITTER HELPER , Neptali called in and said the pt had a L total hip replacement yesterday at [facility]. They did afollow up lab, and her CBC came back critical, her platelet count is 61. They are ordering it to berechecked in one week, and we will get results for your review. documented in this encounter Plan of Treatment Upcoming Encounters Date Type Department Care Team (Late st Contact Info) Description 01/07/2025 10:00 AM EDT Office Visit [facility] - Family Medicine [address] [place] [phone] Gareth Soria DO [address], [facility] [place] [address] documented as of this encounter Goals Goal Patient Goal Type Associated Problems Recent Progress Patient-Stated? Author IMPROVE MOBILITY General Yes aMry Siu, RN Note: Evaluation of progress towards [...] documented as of this encounter Care Teams Gas Turbine Powerplant Mechanic Helper Relationship Specialty Start Date End Date Gareth Soria DO [address], [facility] [place] [address] PCP - General 09/26/23 documented as of this encounter
--- OUTSIDE RECORDS SUMMARY | 2024-12-04 09:07 | XMS_ITS | Encounter Summary ---
Author Organization [facility] [employer] Address [facility]-[id number] [address] [place] [address] Care Team Providers Care University Extension Specialist Name Role Phone Gareth Soria Primary Care Provider [phone] Encounter Details Date Type Department Care Team (Late st Contact Info) Description 04/18/2023 Telephone [facility] - Family Medicine [address] [place] [phone] Iva Ontiveros, GREETING CARD MAKER-ELECTRICAL MAINTENANCE WORKER [address] [place] [address] Social History Tobacco Use Types Packs/Day Years [...] often do you attend chur ch or sikh services? Never 06/14/2022 Do you belong to [...] Answer Date Recorded Total Score 0 11/26/2022 [facility] of Occupat ional Health - Occupational [...] got money to buy more. Never True 01/21/2023 Within the past 12 months th e food we bought just didn't last and we didn't have money to get more. Never True 01/21/2023 Purpose - Life Answer Date Recorded I [...] PM EDT documented as of this encounter Miscellaneous Notes * Telephone Encounter - Sharlene Candelario - 04/18/2023 3:17 PM EDT Pt is due for a Mammogram. Please send orders to [facility]. thanks * Telephone Encounter - Iva Alejandro ELISABETH Ontiveros-AMANDA - 04/18/2023 3:17 PM EDT Done - Iva Enrique Flavia Ontiveros APRN-AMANDA 04/18/23 1531 documented in this encounter Plan of Treatment Upcoming Encounters Date Type Department Care Team (Late st Contact Info) Description 01/07/2025 10:00 AM EDT [facility] [address] [place] [address] Gareth Soria DO [address], [facility] [place] [place] [address] documented as of this encounter Goals Goal [...] documented as of this encounter Care Teams University Extension Specialist Relationship Specialty Start Date End Date Gareth Soria DO [address] [facility] [place] [address] PCP - General 09/26/23 documented as of this encounter
--- OUTSIDE RECORDS SUMMARY | 2024-12-04 09:07 | XMS_ITS | Encounter Summary ---
Author Organization [facility] tem Address [facility] [place] [facility]-[id number] [address] [place] [address] Care Team Providers Care Gore Maker Name Role Phone Gareth Soria Primary Care Provider Encounter Details Date Type Department Care Team (Late st Contact Info) Description 11/17/2024 Orders Only [facility] [address] [place] [phone] External, Scanning Provider Social History Tobacco Use Types Packs/Day Years Used Date Smoking Tobacco: Former Cigarettes 1 1994 Smokeless Tobacco: Never Alcohol Use Standard Drinks/Week Comments Yes 0 (1 standard drink = 0.6 oz pur e alcohol) rarely [facility] Utilities Answer Date Recorded In the past 12 months has [employer], gas, oil, or water [employer] threatened to shut off services in your [...] How often do you attend chur or protestant services? Never 06/14/2022 Do you belong to [...] 05/24/2023 PHQ-2 Answer Date Recorded Total Score 16 10/05/2024 [facility] of Occupat ional Health [...] got money to buy more. Never True 10/05/2024 Within the past 12 months th e food we bought just didn't last and we didn't have money to get more. Never True 10/05/2024 Purpose - Life Answer Date Recorded I [...] Internal Medicine - Family Medicine [address] [place] [address] Gareth Soria, DO [address] [facility], [place] [address] documented as of this encounter Goals Goal Patient Goal Type Associated Problems Recent Progress Patient-Stated? Author IMPROVE MOBILITY General Yes Mary Siu, RN Note: Evaluation of progress towards goal: Maximize work with PT at discharge to strengthen L HIP documented as of this encounter Procedures Procedure Name Priority Date/Time Associated Diagnosis Comments FIBROSCAN Routine 11/13/2024 2:55 PM EDT documented in this encounter Visit Diagnoses Not on filedocumented in this encounter Additional Health Concerns Assessment Noted Time PHQ-9 Depression Total Score: 16 025 2:46 PM EDT A Body Mass Index follow-up plan has been documented for the patient 06/14/2022 6:18 PM EST documented as of this encounter Care Teams Gore Maker Relationship Specialty Start Date End Date Gareth Soria DO [address] [facility], [place] [address] PCP - General 09/26/23 documented as of this encounter
--- OUTSIDE RECORDS SUMMARY | 2024-12-04 09:07 | XMS_ITS | Encounter Summary ---
Author Organization [employer] tem Address [facility] [place] [place]-[id number] [address] [place] [address] Care Team Providers Care Horticultural Manager Name Role Phone Gareth Soria Primary Care Provider Encounter Details Date Type Department Care Team (Latest Contact Info) Description 12/02/2024 Travel Social History Tobacco Use Types Packs/Day Years Used Date Smoking Tobacco: Former Cigarettes 1 05 17 983 - 1994 Smokeless Tobacco: Never Alcohol Use Standard Drinks/Week Comments Yes 0 (1 standard drink = 0.6 oz pur e alcohol) rarely [facility] Utilities Answer Date Recorded In the past 12 months has e electric, gas, oil, or water company threatened [...] often do you attend chur ch or voodoo services? Never 06/14/2022 Do you belong to [...] Answer Date Recorded Total Score 16 10/05/2024 [facility] of Occupat ional Health - Occupational [...] - Family Medicine [address] [place] [address] Gareth Soria DO [address], [facility] [place] [place] [address] documented as of this encounter Goals Goal [...] documented as of this encounter Care Teams Horticultural Manager Relationship Specialty Start Date End Date Gareth Soria DO [address], [place] [address] PCP - General 09/26/23 documented as of this encounter
--- OUTSIDE RECORDS SUMMARY | 2024-12-04 09:07 | XMS_ITS | Encounter Summary ---
Author Organization [facility] Address [facility]-[id number] [address] [place] [address] Care Team Providers Care Solid State Tester Name Role Phone FreddieGareth roca Primary Care Provider [phone] Encounter Details Date Type Department Care Team (Late st Contact Info) Description 10/26/2024 Telephone [facility] [address] [place] [phone] Tesha Boyce CMA Social History Tobacco Use Types Packs/Day Years Used Date Smoking Tobacco: Former Cigarettes - 1994 Smokeless Tobacco: Never Alcohol Use Standard Drinks/Week Comments Yes 0 (1 standard drink = 0.6 oz pur e alcohol) rarely [facility] Utilities Answer Date Recorded In the past 12 months has [employer], gas, oil, or water [employer] threatened to shut off services in your [...] often do you attend chur ch or christian services? Never 06/14/2022 Do you belong to any clubs o r organizations such as hindu groups, unions, fraternal or athletic groups, or [...] Answer Date Recorded Total Score 16 10/05/2024 [facility] - Occupational Stress Questionnaire Answer Date Recorded [...] Recorded Do you need help finding a [facility] career center and/or a training program? [...] encounter Miscellaneous Notes * Telephone Encounter - Tesha Byoce CMA - 10/26/2024 11:13 AM EDT ----- Message from Gareth Soria DO sent at 10/25/2024 10:53 PM EDT ----- Her liver ultrasound suggested cirrhosis. She should have a fibroscan and see a international marketing coordinator to evaluate further ----- Message ----- From: Interface - Rad Results/Orders In 1 Sent: 10/25/2024 2:17 PM EDT To: Gareth Soria DO * Telephone Encounter - Tesha Boyce CMA - 10/26/2024 11:13 AM EDT Called , vm not set up documented in this encounter Plan of Treatment Upcoming Encounters Date Type Department Care Team (Late st Contact Info) Description 01/07/2025 10:00 AM EDT Office Visit [facility] - Family Medicine [address] [place] [address] Gareth Soria DO [address] [facility] [place] [address] documented as of this encounter Goals Goal [...] documented as of this encounter Care Teams Solid State Tester Relationship Specialty Start Date End Date Gareth Soria DO [address], [facility] [place] [address] PCP - General 09/26/23 documented as of this encounter
--- OUTSIDE RECORDS SUMMARY | 2024-12-04 09:07 | XMS_ITS | Encounter Summary ---
Author Organization [facility] Address [facility]-[id number] [address] [place] [address] Care Team Providers Care Potable Water Treatment Operator Name Role Phone Gareth Soria Primary Care Provider [phone] Encounter Details Date Type Department Care Team (Late st Contact Info) Description 10/26/2024 Telephone [facility] - Family Medicine [address] [place] [phone] Andree Heart CMA Social History Tobacco Use Types Packs/Day Years Used Date Smoking Tobacco: Former Cigarettes 1 - 1994 Smokeless Tobacco: Never Alcohol Use Standard Drinks/Week Comments Yes 0 (1 standard drink = 0.6 oz pur e alcohol) rarely [facility] Utilities Answer Date Recorded In the past 12 months has [employer], gas, oil, or water [employer] threatened to shut off services in your [...] often do you attend chur ch or mormon services? Never 06/14/2022 Do you belong to any clubs o r organizations such as rastafarian groups, unions, fraternal or athletic groups, or [...] Answer Date Recorded Total Score 16 10/05/2024 [facility] - Occupational Stress Questionnaire Answer Date [...] Recorded Do you need help finding a [facility] career center and/or a training program? No [...] encounter Miscellaneous Notes * Telephone Encounter - Andree Heart CMA - 10/26/2024 12:14 PM EDT I spoke to pt and she agreed to be referred to a ship's carpenter and a fibroscan. documented in this encounter Plan of Treatment Upcoming Encounters Date Type Department Care Team (Late st Contact Info) Description 01/07/2025 10:00 AM EDT Office Visit [facility] - Family Medicine [address] [place] [phone] Gareth Soria DO [address], [place] [address] documented as of this encounter Goals Goal [...] documented as of this encounter Care Teams Potable Water Treatment Operator Relationship Specialty Start Date End Date Gareth Soria DO [address] [place] [address] PCP - General 09/26/23 documented as of this encounter
--- OUTSIDE RECORDS SUMMARY | 2024-12-04 09:07 | XMS_ITS | Clinical Summary ---
Author Organization [facility] Address [address] [place] [address] Care Team Providers Care Business Project Manager Name Role Phone Gareth Soria MD Primary Care Provider Yobany Gabriel DO Unavailable [phone] Allergies No known active allergies Medications metFORMIN XR (Glucophage-XR) 750 MG 24 hr tablet Take 750 mg by mouth in the evening. Take with meals Do not crush, chew, or split. Active losartan (Cozaar) 50 MG tablet Take 50 mg by mouth Daily Active atorvastatin (Lipitor) 20 MG tablet Take 20 mg by mouth Daily Active sertraline (Zoloft) 50 MG tablet Take 50 mg by mouth Daily Active carBAMazepine ER (Carbatrol) 200 MG 12 hr capsule Take 200 mg by mouth in the morning and 200 mg at noon and 200 mg in the evening. Active potassium chloride CR (Klor-Con) 8 MEQ ER tablet Take 8 mEq by mouth Daily Do not crush, chew, or split. Active alendronate (Fosamax) 70 MG tablet Take 70 mg by mouth every 7 (seven) days Take in the morning with a full glass of water, on an empty stomach, and do not take anything else by mouth or lie down for the next 30 min. Active latanoprost (Xalatan) 0.005 % ophthalmic solution 1 drop at bedtime Active magnesium oxide-pyridoxin e (Beelith) 362-20 MG tablet Take 1 tablet by mouth Daily Active aspirin 81 MG EC tablet Take 81 mg by mouth Daily Active Dulaglutide 3 MG/0.5ML solution auto-injector Inject 0.75 mg under the skin 1 (one) time per week Active potassium chloride CR (Klor-Con M10) 10 MEQ ER tablet 07/04/2024 Active atorvastatin (Lipitor) 40 MG tablet 07/08/2024 Active sertraline (Zoloft) 100 MG tablet 07/08/2024 Active Trulicity 1.5 MG/0.5ML solution auto-injector 06/22/2024 Activ e mirabegron ER (Myrbetriq) 25 MG 24 hr tablet Take 25 mg by mouth in the morning. 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); TGA (transient global amnesia) 10/12/2024 Bamboo flowsheet [facility] [address] [address] Yobany Gabriel DO from Last 3 Months Family History Relation Name Status Comments Brother Alive Social History Tobacco Use Types Packs/Day Years Used Date Smoking Tobacco: Former Cigarettes Smokeless Tobacco: Never Tobacco Cessation:Counseling Given: Not Answered Alcohol Use Standard Drinks/Week Comments Yes 0 (1 standard drink = 0.6 oz pur e alcohol) Comments Unknown Sex and Gender Information Value Date Recorded Sex Assigned at Female 10/08/2023 9:48 AM EDT Legal Sex Female 6:48 PM EDT Gender Identity Female 10/08/2023 9:48 AM EDT Sexual Orientation Not on file Last Filed Vital Signs Vital Sign Reading Time Taken Comments Blood Pressure 118/76 10/12/2024 11:55 AM EDT Pulse 88 07/13/2024 9:49 AM EST Temperature - - Respiratory Rate 16 10/09/2023 8:29 AM EDT Oxygen Saturation - - Inhaled Oxygen Concentration - - Weight 61.2 kg (135 lb) 10/12/2024 11:55 AM EDT Height 154.9 cm (5' 1 ) 10/12/2024 11:55 AM EDT Body Mass Index 25.51 10/12/2024 11:55 AM EDT Plan of Treatment Health Maintenance Due Date Last Done Comments CT Colonography 1955 Colonoscopy 1955 Colorectal Cancer Screening 1955 FIT-DNA 1957 FIT 1955 FOBT 1955 Sigmoidoscopy 1955 Mammogram 05/04/2025 05/04/2024, 04/17, 12/20/2021, Additional history exists Pneumococcal Vaccine: 65+ Years Completed , 08/24/2016 Influenza Vaccine Completed 04/03/2024, , 04/02/2022, Additional history exists Insurance [facility] [id number] Care Teams Business Project Manager Relationship Specialty Start Date End Date Gareth Soria MD [address] [facility] [place] [phone] PCP - General Family Medicine 10/08/24 Yobany Gabriel DO [address] [place] [address] Referring Physician Neurology 10/12/24
--- OUTSIDE RECORDS SUMMARY | 2024-12-04 09:07 | XMS_ITS | Encounter Summary ---
Author Organization [facility] tem Address [facility] [id number] [address] [place] [address] Care Team Providers Care Senior Quality Engineer Name Role Phone Gareth Soria Primary Care Provider Encounter Details Date Type Department Care Team (Late st Contact Info) Description 12/05/2022 Telephone [facility] [address] [place] [phone] Sonia Barber RN Social History Tobacco Use Types Packs/Day Years [...] often do you attend chur ch or taoism services? Never 06/14/2022 Do you belong to any clubs o r organizations such as amish groups, unions, fraternal or athletic groups, or [...] Answer Date Recorded Total Score 0 11/26/2022 [facility] - [...] encounter Miscellaneous Notes * Telephone Encounter - Sonia Barber RN - 12/05/2022 4:55 PM EDT Oxycodone is on backorder at [facility]. Can you send something different in? She does not have any pain medication. She had surgery yesterday. * Telephone Encounter - Bennie Saucedo MD - 12/05/2022 4:55 PM EDT Mackey sent documented in this encounter Plan of Treatment Upcoming Encounters Date Type Department Care Team (Late st Contact Info) Description 01/07/2025 10:00 AM EDT Office Visit [facility] Internal Medicine - Family Medicine [address] [place] [address] Gareth Soria, DO [address], [facility] [place] [address] documented as of this encounter Goals Goal Patient Goal Type Associated Problems Recent Progress Patient-Stated? Author IMPROVE MOBILITY General Yes Mary Siu RN Note: Evaluation of progress towards goal: [...] documented as of this encounter Care Teams Senior Quality Engineer Relationship Specialty Start Date End Date Gareth Soria DO [address], [facility] [place] [address] PCP - General 09/26/23 documented as of this encounter
--- OUTSIDE RECORDS SUMMARY | 2024-12-04 09:07 | XMS_ITS | Encounter Summary ---
Author Organization [facility] tem Address [id number] [address] [place] [address] Care Team Providers Care Laser Engraver Name Role Phone Gareth Soria Primary Care Provider [phone] Reason for Visit * Reason Comments Med Refill Encounter Details Date Type Department Care Team (Late st Contact Info) Description 01/03/2023 Refill [facility] Internal Medicine - Family Medicine [address] [place] [phone] Krystal Casas, DIRECTOR PHARMACY SERVICES-SUPERVISOR BRINE [address] [place] [address] Type 2 diabetes mellitus with hyperglycemia, without long-term current use of insulin ([facility]) Social History Tobacco Use Types Packs/Day Years [...] week 06/14/2022 How often do you attend [facility] or adventism services? Never 06/14/2022 Do you belong to any clubs o r organizations such as tenriism groups, unions, fraternal or athletic groups, or [...] Answer Date Recorded Total Score 0 11/26/2022 [facility] Occupat ional Health - [...] Recorded Do you need help finding a [facility] career center and/or a training [...] - Family Medicine [address] [place] [address] Gareth Soria DO [address] [facility] [place] [address] documented as of this encounter Goals Goal Patient Goal Type Associated Problems Recent Progress Patient-Stated? Author IMPROVE MOBILITY General Yes Mary Siu, RN Note: Evaluation of progress towards goal: Maximize work with PT at discharge to strengthen L HIP documented as of this encounter Visit Diagnoses Diagnosis Type 2 diabetes mellitus with hyperglycemia, without long-term current use of insulin ([facility]) documented in this encounter Additional Health Concerns Assessment Noted Time PHQ-9 Depression Total Score: 0 11/27/19 23 4:07 PM EDT A Body Mass Index follow-up plan has been documented for the patient 06/14/2022 6:18 PM EST documented as of this encounter Care Teams Laser Engraver Relationship Specialty Start Date End Date Gareth Soria DO [address] [facility] [place] [address] PCP - General 09/26/23 documented as of this encounter
--- OUTSIDE RECORDS SUMMARY | 2024-12-04 09:07 | XMS_ITS | Encounter Summary ---
Author Organization [facility] [employer] [facility] tem Address [facility] [place][id number] [address] [place] [address] Care Team Providers Care Orthopedic Mechanic Name Role Phone Gareth Soria DO Primary Care Provider [phone] Encounter Details Date Type Department Care Team (Late st Contact Info) Description 04/29/2023 [facility]phone [facility] Family Medicine [address] [place] [address] Gareth Soria DO [address], [facility] [place] [address] Social History Tobacco Use Types Packs/Day Years [...] often do you attend chur ch or yarsanism services? Never 06/14/2022 Do you belong to any clubs o r organizations such as gnosticism groups, unions, fraternal or athletic groups, or [...] Answer Date Recorded Total Score 0 11/26/2022 [facility] - Occupational Stress Questionnaire Answer Date [...] encounter Miscellaneous Notes * Telephone Encounter - Ophelia De Guzman - 04/29/2023 10:41 AM EST Rui is coming in for a dm appt and would like labs sent to the [facility]. Thanks documented in this encounter Plan of Treatment Upcoming Encounters Date Type Department Care Team (Late st Contact Info) Description 01/07/2025 10:00 AM EDT Office Visit [facility] Internal Medicine - Family Medicine [address] [place] [address] Gareth Soria DO [address], [facility] [place] [address] documented as of this encounter Goals Goal [...] documented as of this encounter Care Teams Orthopedic Mechanic Relationship Specialty Start Date End Date Gareth Soria DO [address], [place] [address] PCP - General 09/26/23 documented as of this encounter
--- OUTSIDE RECORDS SUMMARY | 2024-12-04 09:07 | XMS_ITS | Encounter Summary ---
Author Organization [facility] tem Address [facility] [id number] [address] [place] [address] Care Team Providers Care Laundry Machine Mechanic Name Role Phone Gareth Soria Primary Care Provider [phone] Encounter Details Date Type Department Care Team (Late st Contact Info) Description 10/08/2024 Orders Only [facility] Internal Medicine - Family Medicine [address] [place] [address] Ref Prov, [place] [address] Social History Tobacco Use Types Packs/Day Years Used Date Smoking Tobacco: Former Cigarettes 1 1994 Smokeless Tobacco: Never Alcohol Use Standard Drinks/Week Comments Yes 0 (1 standard drink = 0.6 oz pur e alcohol) rarely C Utilities Answer Date Recorded In the past 12 months has [employer], gas, oil, or water [employer] threatened to shut off services in your [...] How often do you attend chur or shinto services? Never 06/14/2022 Do you belong to any clubs o r organizations such as cheondoism groups, unions, fraternal or athletic groups, or [...] Answer Date Recorded Total Score 16 10/05/2024 [facility] Occupat ional Health - Occupational [...] Internal Medicine - Family Medicine [address] [place] [address] Gareth Soria, DO [address] [facility] [place] [address] documented as of this encounter Goals Goal Patient Goal Type Associated Problems Recent Progress Patient-Stated? Author IMPROVE MOBILITY General Yes Mary Siu, RN Note: Evaluation of progress towards goal: Maximize work with PT at discharge to strengthen L HIP documented as of this encounter Procedures Procedure Name Priority Date/Time Associated Diagnosis Comments HEPATITIS C VIRUS QUANTITATIVE BY NAAT Routine 12/08/2015 7:26 AM EDT HEPATITIS C VIRUS QUANTITATIVE BY NAAT Routine 12/08/2015 7:25 AM EDT documented in this encounter Results * Hepatitis C Virus Quantitative by NAAT (12/08/2015 7:26 AM EDT) Blood us Not In System Ref Prov LAB BLOOD ORDERABLES Karina l Result MANUALLY TRANSCRIBED LAB RESULTS * Hepatitis C Virus Quantitative by NAAT (12/08/2015 7:25 AM EDT) Blood us Not In System Ref Prov LAB BLOOD ORDERABLES Karina l Result documented in this encounter Visit Diagnoses Not on filedocumented in this encounter Additional Health Concerns Assessment Noted Time PHQ-9 Depression Total Score: 16 025 2:46 PM EDT A Body Mass Index follow-up plan has been documented for the patient 06/14/2022 6:18 PM EST documented as of this encounter Care Teams Laundry Machine Mechanic Relationship Specialty Start Date End Date Gareth Soria DO [address] [facility] [place] [address] PCP - General 09/26/23 documented as of this encounter
--- OUTSIDE RECORDS SUMMARY | 2024-12-04 09:07 | XMS_ITS | Encounter Summary ---
Author Organization [employer] [facility] tem Address [facility] [id number] [address] [place] [address] Care Team Providers Care Handyman Name Role Phone EstellaGareth Afshin GOLDSTEIN Primary Care Provider Reason for Referral * Occupational Therapy (Routine) - Closed Specialty Diagnoses / Procedures Referred By Contact Referred To Contact Occupational Therapy / Rehabilitation Diagnoses Nondisplaced fracture of proximal phalanx of right little finger, initial encounter for closed fracture Joint stiffness of hand, right Geoffrey Sharif MD [address] [place] [address] Phone: tel: fax: [facility] [address] [facility] [address] [place] [address] Phone: tel: fax: Referral ID Status Reason Start Date Expiration Date V isits Requested Visits Authorized [id number] Closed Specialty Services Required 09/04/2021 09/04/2022 12 12 Encounter Details Date Type Department Care Team (Late st Contact Info) Description 09/04/2021 Telephone [facility] [address] [facility] [address] [place] [phone] Amanda Horne LPN Social History Tobacco Use Types Packs/Day Years [...] Exposure Response Date Recorded In the last 10 days, have yo u been in contact with someone who was confirmed or suspected to have Coronavirus/COVID-19? No / Unsure 09/06/2021 9:25 AM EDT documented as of this encounter Miscellaneous Notes * Telephone Encounter - mAanda Horne LPN - 09/04/2021 10:44 AM EDT Pt called today 09/04/2021 asking for the Results of the CT scan done on her Right hand 08/15/2021. Phone no. [phone]. Thank you * Telephone Encounter - Geoffrey Minor MD - 09/04/2021 10:44 AM EDT Mane Patel discussed the CT findings with the patient over the phone and put in a prescription for occupational therapy for the patient. Could you please see if you are able to fax this prescriptio to the [facility] in [facility] to the outpatient therapy Department. Thank you, Dr. Berg documented in this encounter Plan of Treatment Upcoming Encounters Date Type Department Care Team (Late st Contact Info) Description 01/07/2025 10:00 AM EDT Office Visit [facility] Internal Medicine - Family Medicine [address] [place] [address] Gareth Soria DO [address] [facility] [place] [address] Scheduled Referrals Name Type Priority Associated Diagnoses Order Schedule Ambulatory referral to Occupational Therapy Outpatient Referral Routine Nondisplaced fracture of proximal phalanx of right little finger, initial encounter for closed fracture Joint stiffness of hand, right 1 Occurrences starting 09/04/2021 until 09/04/2022 documented as of this encounter Visit Diagnoses Diagnosis Nondisplaced fracture of proximal phalanx of right little finger, initial encounter for closed fracture- Primary Joint stiffness of hand, right documented in this encounter Care Teams Handyman Relationship Specialty Start Date End Date Gareth Soria DO [address] [place] [address] PCP - General 09/26/23 documented as of this encounter
--- OUTSIDE RECORDS SUMMARY | 2024-12-04 09:07 | XMS_ITS | Encounter Summary ---
Author Organization [facility] tem Address [facility] [id number] [address] [place] [address] Care Team Providers Care Senior It Auditor Name Role Phone Gareth Soria DO Primary Care Provider [phone] Encounter Details Date Type Department Care Team (Late st Contact Info) Description 06/11/2023 Orders Only [facility] Internal Medicine - Family Medicine [address] [place] [address] Gareth Soria DO [address], [facility] [place] [address] Social History Tobacco Use Types Packs/Day Years Used Date Smoking Tobacco: Former Cigarettes 1 05 17 983 - 1994 Smokeless Tobacco: Never Alcohol Use Standard Drinks/Week Comments Yes 0 (1 standard drink = 0.6 oz pur e alcohol) rarely [facility] Utilities Answer Date Recorded In the past 12 months has [employer] electric, gas, oil, or water company threatened [...] week 06/14/2022 How often do you attend [facility] or spiritism services? Never 06/14/2022 Do you belong to any clubs o r organizations such as jainism groups, unions, fraternal or athletic groups, or [...] Answer Date Recorded Total Score 0 11/26/2022 [facility] of Occupat ional Health - [...] Recorded Do you need help finding a ocal career center and/or a training program? [...] Medicine - Family Medicine [address] [place] [address] Gareth Soria DO [address], [facility] [place] [address] documented as of this encounter Goals Goal [...] as of this encounter Care Teams Senior It Auditor Relationship Specialty Start Date End Date Gareth Soria DO [address], [place] [address] PCP - General 09/26/23 documented as of this encounter
--- OUTSIDE RECORDS SUMMARY | 2024-12-04 09:07 | XMS_ITS | Encounter Summary ---
Author Organization [facility] tem Address [facility] [id number] [address] [place] [address] Care Team Providers Care Wire Winder Name Role Phone Gareth Soria Primary Care Provider [phone] Encounter Details Date Type Department Care Team (Late st Contact Info) Description 06/22/2024 Orders Only [facility] Internal Medicine - Family Medicine [address] [place] [address] Ref Prov, [place] [address] Social History Tobacco Use Types Packs/Day Years Used Date Smoking Tobacco: Former Cigarettes 1 1994 Smokeless Tobacco: Never Alcohol Use Standard Drinks/Week Comments Yes 0 (1 standard drink = 0.6 oz pur e alcohol) rarely C Utilities Answer Date Recorded In the past 12 months has [employer], gas, oil, or water [employer] threatened to shut off services in your [...] How often do you attend chur or restorationism services? Never 06/14/2022 Do you belong to any clubs o r organizations such as presybeterian groups, unions, fraternal or athletic groups, or [...] Answer Date Recorded Total Score 0 09/05/2023 [facility] Occupat ional Health - [...] Internal Medicine - Family Medicine [address] [place] [address] Gareth Soria, DO [address], [place] [address] documented as of this encounter Goals Goal Patient Goal Type Associated Problems Recent Progress Patient-Stated? Author IMPROVE MOBILITY General Yes Mary Siu, RN Note: Evaluation of progress towards goal: Maximize work with PT at discharge to strengthen L HIP documented as of this encounter Procedures Procedure Name Priority Date/Time Associated Diagnosis Comments DIABETES EYE EXAM Routine 06/19/2024 2:06 PM EST documented in this encounter Results * HM DIABETES EYE EXAM (06/19/2024 2:06 PM EST) [...] documented as of this encounter Care Teams Wire Winder Relationship Specialty Start Date End Date Gareth Soria DO [address] [facility] [place] [address] PCP - General 09/26/23 documented as of this encounter
--- NOTE | 2024-12-04 09:09 | PC.NURSE ---
PT STATES BEEN HAVING WEAKNESS AND ELEVATED BLOOD SUGARS AT HOME SINCE JUNE. PT STATES WASN'T ABLE TO SEE PCP UNTIL SEPTEMBER AND BLOOD SUGAR WAS OVER 300. PT STATES HAS NOT BEEN GETTING ANY BETTER. FINGER STICK AT BEDSIDE UPON ARRIVAL WAS 348.
--- NOTE | 2024-12-04 09:11 | ECG_ITS ---
[facility] Test Date: 2024-12-04 Pat Name: ALE DASILVA Department: Room: - Gender: Female Manpower Development Advisor: : [id number] Requested By: [id number] Order Number: [id number] Reading MD: WILLY VILLANUEVA M.D. Measurements Intervals [place] Rate: 75 P: 37 ME: 148 QRS: 20 QRSD: 86 T: 10 QT: 388 QTc: 418 Interpretive Statements 1100 Sinus rhythm 3434 Septal myocardial infarction, age undetermined 9150 abnormal ECG No previous ECG available for comparison Electronically Signed On 12-04-2024 19:29:02 EDT by WILLY VILLANUEVA M.D.
[2024-12-04 09:34] LABS: Basophils Percent Auto 0.4 % (0.2-2.0); Hematocrit 40.4 % (36.0-48.0); Hemoglobin 14.6 g/dL (12.0-16.0); Immature Granulocytes Abs Auto 0.01 10^3/uL (0.00-0.03); Immature Granulocytes Pct Auto 0.4 % (0.0-0.5); Lymphocytes Percent Auto 34.8 % (20.5-60.0); Mean Corpuscular HGB Conc 36.1 g/dL (29.9-35.2); Mean Corpuscular Hemoglobin 34.9 pg (26.7-34.0); Mean Corpuscular Volume 96.7 fL (81.0-99.0); Mean Platelet Volume 11.1 fL (9.5-13.5); Monocytes Absolute Auto 0.3 10^3/uL (0.3-0.8); Monocytes Percent Auto 9.4 % (1.7-12.0); Neutrophils Absolute Auto 1.5 10^3/uL (1.4-6.5); Platelet Count 73 10^3/uL (150-450); Red Blood Count 4.18 10^6/uL (4.20-5.40); Red Cell Distribution Width 11.6 % (11.0-15.0); White Blood Count 2.8 10^3/uL (4.0-11.0)
[2024-12-04 09:47] LABS: Alanine Aminotransferase 85 U/L (14-59); Albumin Globulin Ratio 1.1; Albumin Level 3.4 g/dL (3.4-5.0); Alkaline Phosphatase 114 U/L (46-116); Anion Gap 9.3; Aspartate Amino Transferase 73 U/L (15-37); BUN Creatinine Ratio 23.8; Bilirubin Total 0.7 mg/dL (0.2-1.0); Calcium 9.3 mg/dL (8.5-10.1); Carbon Dioxide 34.8 mmol/L (21.0-32.0); Chloride 98 mmol/L (98-107); Estimated GFR (African America >60 (>=60 mL/min/1.73m^2); Estimated GFR (Non-African Ame >60 (>=60 mL/min/1.73m^2); Globulin 3.2 g/dL; Glucose 370 mg/dL (74-106); Potassium 4.1 mmol/L (3.5-5.1); Sodium 138 mmol/L (136-145); Total Protein 6.6 g/dL (6.4-8.2)
[2024-12-04 09:49] LABS: Magnesium 1.8 mg/dL (1.8-2.4); Troponin I High Sensitivity 11.5 pg/mL (4.0-51.3)
[2024-12-04] MEDS: 0.9 % SODIUM CHLORIDE 1,000 ML 1000 ML IV (10:50)
[2024-12-04] MEDS: INSULIN GLARGINE 300 UNIT/3 ML INSULN.PEN 10 UNIT SQ (11:27)
--- NOTE | 2024-12-04 11:42 | ED.GENADUL1 ---
HPI HPI - General Adult General Chief complaint: Weakness Stated complaint: FATIGUE, HIGH BLOOD SUGAR READING Time Seen by Provider: 12/04/24 09:10 Source: patient Mode of arrival: walk-in History of Present Illness HPI narrative: The patient 69-year-old female with history of hypertension as well as diabetes is coming to the ER with the patient has been having gas since September her blood sugar need to be controlled better, but for the last few days she has been having some high readings and her blood sugar machine and that why she came to the ER Patient also was concerned about her recent CAT done by her primary care doctor as a management for fatty liver disease Related Data Home Medications ?Medication ?Instructions ?Recorded ?Confirmed alendronate 70 mg tablet mg PO 12/04/24 atorvastatin 40 mg tablet mg 12/04/24 carbamazepine 200 mg tablet mg 12/04/24 dulaglutide 3 mg/0.5 mL mg subcut 12/04/24 subcutaneous pen injector (Trulicity) latanoprost 0.005 % eye drops drp ophthalmic (eye) 12/04/24 losartan 50 mg tablet mg 12/04/24 metformin 750 mg tablet,extended mg PO 12/04/24 release 24 hr mirabegron 25 mg tablet,extended mg PO 12/04/24 release 24 hr potassium chloride 10 mEq meq PO 12/04/24 tablet,extended release(part/cryst) sertraline 100 mg tablet mg 12/04/24 Previous Rx's ?Medication ?Instructions ?Recorded insulin glargine 100 unit/mL (3 10 unit (0.1 mL) subcut QAM #15 mL 12/04/24 mL) subcutaneous pen (Lantus Solostar U-100 Insulin) Allergies Allergy/AdvReac Type Severity Reaction Status Date / Time No Known Drug Allergies Allergy Verified 12/04/24 09:04 Review of Systems ROS Status of ROS 10 or more systems reviewed and unremarkable except as noted in history and below PFSH PFSH Social History Little interest or pleasure in doing things: not at all Feeling down, depressed, or hopeless: several days Exam Narrative Exam Narrative: Nurses notes and vital signs reviewed and patient is not hypoxic. General: Well-appearing and in no apparent distress. Skin: Warm, dry, no pallor noted. No rash. Head: Normocephalic, atraumatic. Neck: Supple, non-tender. Eye: Pupils are equal, round and EOMI. No scleral icterus. Cardiovascular: Regular Rate and Rhythm without murmur, gallop or rub. Respiratory: No accessory muscle use or respiratory distress. Lungs are clear to auscultation, no wheezing, rales or rhonchi Chest Wall: no tenderness Back: No midline thoracic or lumbar vertebral tenderness. No CVA tenderness Musculoskeletal: normal ROM, no calf or popliteal tenderness, no lower extremity edema/swelling GI: Abdomen is soft, non-distended. Normal bowel sounds. No masses appreciated. No tenderness to palpation. No rebound, guarding, or rigidity noted. Neurological: A&O x4. No cranial nerve dysfunction observed. No truncal ataxia. Moves all extremities. Sensation intact. Psychiatric: Cooperative and interactive. Normal mood and affect. Constitutional Vital Signs, click to edit/add: Last Vital Signs Temp 98 F 12/04/24 11:48 Pulse 77 12/04/24 11:48 Resp 19 12/04/24 11:48 BP 169/93 H 12/04/24 11:48 Pulse Ox 95 12/04/24 11:48 O2 Del Method Room Air 12/04/24 11:48 Course Vital Signs Vital signs: Vital Signs Temperature 98.0 F 12/04/24 09:04 Pulse Rate 86 12/04/24 09:04 Respiratory Rate 16 12/04/24 09:04 Blood Pressure 150/97 H 12/04/24 09:04 Pulse Oximetry 95 12/04/24 09:04 Oxygen Delivery Method Room Air 12/04/24 09:04 Temperature 98 F 12/04/24 11:48 Pulse Rate 77 12/04/24 11:48 Respiratory Rate 19 12/04/24 11:48 Blood Pressure 169/93 H 12/04/24 11:48 Pulse Oximetry 95 12/04/24 11:48 Oxygen Delivery Method Room Air 12/04/24 11:48 Medical Decision Making [facility] Narrative Medical decision making narrative: EKG showing sinus rhythm with a heart rate of [address] elevation or depression The patient does not have any specific symptoms except for the elevated blood sugar that been going on at least for a week Patient blood sugar was 375 but she did not have any anion gap and she initially was provided IV fluid and I discussed the case with her primary care doctor Dr Soria , and after reviewing the patient medication the patient was started on Lantus 10 units subcu every morning and to measure her blood sugar twice a day before going to sleep and after waking up The patient was educated about the importance of making sure that she does not have any hypoglycemic symptoms and and to make sure that she is measuring her blood sugar on a daily basis In case of any hypoglycemic symptoms the patient will keep candy handy with her all the time The patient to follow-up with her primary care doctor within the next few days and to call the beginning of the week for an appointment The patient is to follow up with primary care physician in next 2-3 days or to return to the emergency department should any of the signs or symptoms worsen or new symptoms develop. The patient agrees with the following Diagnosis and Treatment plan and the patient will be discharged home. The patient was educated about giving herself the subcu insulin and she was watched here in the ER by the caring nurse while she is giving herself the insulin here Lab Data Labs: Lab Results 12/04/24 12/04/24 Range/Units 09:07 09:25 WBC 2.8 L (4.0-11.0) 10^3/uL RBC 4.18 L (4.20-5.40) 10^6/uL Hgb 14.6 (12.0-16.0) g/dL Hct 40.4 (36.0-48.0) % MCV 96.7 (81.0-99.0) fL MCH 34.9 H (26.7-34.0) pg MCHC 36.1 H (29.9-35.2) g/dL RDW 11.6 (11.0-15.0) % Plt Count 73 L (150-450) 10^3/uL MPV 11.1 (9.5-13.5) fL Neut % (Auto) 55.0 (43.0-75.0) % Lymph % (Auto) 34.8 (20.5-60.0) % [place] % (Auto) 9.4 (1.7-12.0) % Eos % (Auto) 0.0 L (0.9-7.0) % Baso % (Auto) 0.4 (0.2-2.0) % Neut # (Auto) 1.5 (1.4-6.5) 10^3/uL Lymph # (Auto) 1.0 L (1.2-3.8) 10^3/uL [place] # (Auto) 0.3 (0.3-0.8) 10^3/uL Eos # (Auto) 0.0 (0.0-0.7) 10^3/uL Baso # (Auto) 0.0 (0.0-0.1) 10^3/uL Abs Immat Gran (auto) 0.01 (0.00-0.03) 10^3/uL Imm/Tot Granulo (auto) 0.4 (0.0-0.5) % Sodium 138 (136-145) mmol/L Potassium 4.1 (3.5-5.1) mmol/L Chloride 98 (98-107) mmol/L Carbon Dioxide 34.8 H (21.0-32.0) mmol/L Anion Gap 9.3 BUN 15.0 (7.0-18.0) mg/dL Creatinine 0.63 (0.55-1.02) mg/dL Est GFR ( Amer) >60 (>=60 mL/min/1.73m^2) Est GFR (Non-Af Amer) >60 (>=60 mL/min/1.73m^2) BUN/Creatinine Ratio 23.8 Glucose 370 H (74-106) mg/dL Calcium 9.3 (8.5-10.1) mg/dL Magnesium 1.8 (1.8-2.4) mg/dL Total Bilirubin 0.7 (0.2-1.0) mg/dL AST 73 H (15-37) U/L ALT 85 H (14-59) U/L Alkaline Phosphatase 114 (46-116) U/L Troponin I High Sens 11.5 (4.0-51.3) pg/mL Total Protein 6.6 (6.4-8.2) g/dL Albumin 3.4 (3.4-5.0) g/dL Globulin 3.2 g/dL Albumin/Globulin Ratio 1.1 POC Glucose 348 H (74-106) mg/dL Discharge Plan Discharge Chief Complaint: Weakness Clinical Impression: Hypoglycemia, Insulin administered by patient Patient Disposition: Home, Self-Care Time of Disposition Decision: 11:39 Condition: Good Mode of Transportation: Private Vehicle Prescriptions / Home Meds: New insulin glargine [Lantus Solostar U-100 Insulin] 100 unit/mL (3 mL) insulin pen 10 unit subcut QAM Qty: 15 0RF No Action losartan 50 mg tablet latanoprost 0.005 % drops OPHTHALMIC (EYE) atorvastatin 40 mg tablet alendronate 70 mg tablet PO sertraline 100 mg tablet carbamazepine 200 mg tablet metformin 750 mg tablet extended release 24 hr PO potassium chloride 10 mEq tablet,ER particles/crystals PO mirabegron 25 mg tablet extended release 24 hr PO Trulicity 3 mg/0.5 mL pen injector SUBCUT Print Language: Andorran Instructions: Insulin Glargine (By injection), How to Give an Insulin Injection (ED), How to Draw Up Insulin (ED) Referrals: GRACE SORIA [Primary Care Provider, Family Practice] - As soon as possible Referral Note: please call for appointment by Thursday 12/07 Discharge Date/Time: 12/04/24 11:50
== END 2024-12-04 11:50 | disposition home or self-care (01) ==
PROVIDERS: Emergency Provider Emergency Medicine; PCP Family Medicine
DX: E11.8 Type 2 diabetes mellitus with unspecified complications (principal); E16.2 Hypoglycemia, unspecified; Z79.85 Long-term (current) use of injectable non-insulin antidiabetic drugs
CPT/HCPCS: 36415; 80053; 82948; 83735; 84484; 85025; 93005; 99285